=== PATIENT | female | born 2000 | race Caucasian/White ===

== ENCOUNTER 2023-11-05 09:14 | Emergency (ER) | payer OTHER | END 2023-11-05 10:05 | disposition home or self-care (01) | LOC: JP.ED 09:14 | DX: S69.91XA Unspecified injury of right wrist, hand and finger(s), initial encounter (principal); Z88.0 Allergy status to penicillin; W22.8XXA Striking against or struck by other objects, initial encounter | CPT/HCPCS: 99283 ==